=== PATIENT | male | born 1980 | race Caucasian/White ===

== ENCOUNTER 2018-01-15 20:57 | Emergency (ER) | payer SELFPAY ==
[~2018-01-15] VITALS: Ht 182.9 cm; Wt 86.4 kg
[2018-01-15] MEDS ORDERED: ATIVAN 1MG T1 MG/TAB PO (21:45)
[2018-01-15] MEDS ORDERED: MELAT3MGTAB (21:46)
[2018-01-15] MEDS ORDERED: NATURE'S BLEND100 M2 PO (21:46)
[2018-01-15] MEDS ORDERED: FOLIC ACID 11 MG/TA1 PO (21:46)
[2018-01-15] MEDS ORDERED: COZAAR 25MG25 MG/TAB PO (21:47)
[2018-01-15] MEDS ORDERED: MULTI VITAMINS1 TAB PO (21:47)
[2018-01-15] MEDS ORDERED: MAG-OX 400400 MG/TAB PO (21:48)
[2018-01-15 21:50] LABS: HEMATOCRIT 37.7 % (42.0-52.0); HEMOGLOBIN 12.8 g/dl (13.5-18.0); MEAN CELL VOLUME 107 fl (80.0-100.0); MEAN CORPUSCULAR HEMOGLOBIN 36 pg (27.0-31.0); MEAN CORPUSCULAR HGB CONC 34 g/dl (33.0-37.0); MEAN PLATELET VOLUME 11.2 fl (7.4-10.4); PLATELET COUNT 283 K/mm3 (130-400); RED BLOOD COUNT 3.54 M/mm3 (4.20-5.60); REDCELL DISTRIBUTION WIDTH-CV 16.3 % (11.5-14.5)
[2018-01-15 21:59] LABS: ALBUMIN 2.9 gm/dL (3.5-5.0); CALCIUM 7.6 mg/dL (8.4-10.2); CREATININE, serum 1.12 mg/dL (0.66-1.25); POTASSIUM 5.3 mmol/L (3.4-5.0); TOTAL PROTEIN 6.5 gm/dL (6.4-8.2)
[2018-01-15 22:06] LABS: ANISOCYTOSIS 1+; BAND 4 % (0-10); LYMPHOCYTE 3 % (20.0-51.0); MICROCYTOSIS 1+; NEUTROPHILS 92 % (42.0-75.2); PLATELET ESTIMATE NORMAL (NORMAL)
[2018-01-15 22:44] LABS: COLLECTION METHOD CLEAN CATCH
[2018-01-15 23:17] LABS: INR 2.1 (0.8-3.0); PROTHROMBIN TIME 24.4 SECONDS (9.7-12.8)
[2018-01-15 23:31] LABS: GRANULAR CAST >12 /lpf; HYALINE CAST >12 /lpf; MUCOUS Present /lpf; PH 5 (5-8); URINE APPEARANCE Cloudy; URINE BACTERIA Rare /hpf; URINE BILIRUBIN Positive (NEGATIVE); URINE BLOOD 1+ (NEGATIVE); URINE COLOR Amber; URINE GLUCOSE 1+ (NEGATIVE); URINE KETONE Negative (NEGATIVE); URINE LEUKOCYTE ESTERASE Negative (NEGATIVE); URINE NITRATE Negative (NEGATIVE); URINE PROTEIN(semi-quant) 2+ (NEGATIVE); URINE UROBILINOGEN >=4.0 mg/dL (NEGATIVE); URINE WBC >50 /hpf
[2018-01-16 00:35] VITALS: BP 107/70; PULSE 110; TEMP 97.7
== END 2018-01-16 00:35 | disposition short-term general hospital (02) ==
LOC: COL.ER 20:57
PROVIDERS: Emergency Medicine
DX: A41.9 Sepsis, unspecified organism (principal); K81.9 Cholecystitis, unspecified; E80.7 Disorder of bilirubin metabolism, unspecified; F17.210 Nicotine dependence, cigarettes, uncomplicated
CPT/HCPCS: J0692; J2543; J3010; J3370; J7030; J7050; J7060; Q9967